=== PATIENT | male | born 1965 | race Caucasian/White ===

== ENCOUNTER 2025-09-15 12:50 | Emergency (ER) | payer MEDICAID, SELFPAY ==
[2025-09-15 12:54] VITALS: BP 129/81; PULSE 88; RESP 18; TEMP 37; O2SAT 99; BMI 24.4
--- NOTE | 2025-09-15 13:53 | XR_ITS ---
EXAMINATION: AP lateral soft tissue neck 2 views TECHNIQUE: AP lateral soft tissue neck 2 views Date and time: September 15, 2025, 1400 hours INDICATIONS: Patient states something stuck in the throat today FINDINGS: Air-fluid level in the esophagus Normal epiglottis Prominent cervical spondylosis Advanced degenerative disc disease C5-C6, C6-C7 IMPRESSION: Air-fluid level in the cervical esophagus, likely related to stricture at the gastroesophageal junction Recommend fluoroscopically guided esophagram follow-up
--- NOTE | 2025-09-15 13:53 | EDNOTE_ITS ---
<Statement entered by Elo Vivar MD - 09/15/25 16:31> As co-signing physician, I was present and available for consult prn. I concur with the plan and care as documented by the midlevel provider. ED General RME/HPI General Chief complaint: Shortness of Breath/Dyspnea Stated complaint: DIFFICULTY BREATHING, SOMETHING STUCK IN THROAT Time Seen by Provider: 09/15/25 13:52 Arrival date/time: 09/15/25 12:50 CC: Esophageal blockage HPI approximately 2 hours ago patient was eating pork ribs and got 1 stuck , patient is not able to swallow his own saliva but has no difficulty breathing or speaking. Prior history of similar event Related Data Allergies Allergy/AdvReac Type Severity Reaction Status Date / Time No Known Allergies Allergy Verified 09/15/25 12:53 Review of Systems Review of Systems Narrative Review of Systems: GEN: No fever, no chills, no weight loss EYES: No discharge, no visual changes, no pain HEENT: No ear pain, no congestion, no sore throat PULM: No shortness of breath, no cough, no congestion CV: No chest pain, no dyspnea on exertion, no palpitations GI: No nausea, no vomiting, no diarrhea, no pain, no constipation : No frequency, no urgency, no dysuria MUSC/SKEL: No joint pain, no back pain SKIN: No rash PSYCH: No hallucinations, no depression HEME/LYMPH: No easy bleeding or bruising tendencies NEURO: No weakness, no headache Past Medical History Social History SMOKING STATUS: Never smoker ED Exam Narrative Physical exam: [General: In mild discomfort but not in any acute distress Head normocephalic HEENT: Eyes pupils are PERRLA EOM's intact mouth pink moist membranes, patient is regurgitating saliva on a regular basis. No stridor with auscultation. All of the subsystems HEENT are within acceptable limits Neck is supple nontender no edema no JVD Chest equal chest rise nontender to palpation Respiratory: Clear to auscultation no wheezes crackles or rubs CV: Rate rhythm is regular no murmurs rubs or clicks Abdomen is soft nontender no masses positive bowel sounds all 4 quadrants Back: No CVA tenderness no spinous process tenderness from cervical spine thoracic and lumbar spine Skin: Intact no petechiae rash induration ulceration or crepitus Extremities: Moving all extremity against resistance cap refill less than 2 seconds neurosensory intact Neuro: Awake alert oriented x3 Glascow coma 15 no focal deficits] Course Course Course Narrative: Reassessment of this patient at 1518, the patient was able to tolerate water without any complication in addition to swallowing survive but his phonation has returned completely normal at this time comfortable discharging the patient home. Quality Measures none Orders Category Date Time Status Saline [Insert IV] STAT Care 09/15/25 13:53 Active XR soft tissue neck Stat Exams 09/15/25 13:53 Completed Glucagon Inj Med 09/15/25 13:53 Discontinued 1 mg IVP X1 ONE Vital Signs Vital signs: Vital Signs Temperature 98.6 F 09/15/25 12:54 Pulse Rate 88 09/15/25 12:54 Respiratory Rate 18 09/15/25 12:54 Blood Pressure 129/81 09/15/25 12:54 Pulse Oximetry (%) 99 09/15/25 12:54 Oxygen Delivery Method Room Air 09/15/25 12:54 Discharge Plan Plan Patient Disposition: HOME (Self Care) Problem List Clinical Impression: Esophageal foreign body Patient/Caregiver Discharge Instructions Education Materials: ED Foreign Body Esophageal Rslv Additional Instructions: Chew your food completely and thoroughly. Follow-up with your primary care doctor Print Language: Upper Sorbian Stand Alone Forms: Preeti Award Info., Patient Portal Info Letter, Work/School Release PA/[employer] Supervising Physician PA/[employer] FINISHER Supervising Physician: Jm Moon ENP [facility] Clinical Information Provided by: patient Medical Records reviewed [facility] Meds/Rx considered, not ordered None Labs/Rad/Tests considered, not ordered None Chronic Illness/Social Conditions which may negatively complicate care or outcome(s)-explain: None or not applicable EKG EKG not done Medication Administration(s) Medication Administration History Discontinued Medications Glucagon (Glucagon Inj 1 Mg Vial) 1 mg IVP X1 ONE Stop: 09/15/25 13:54 Last Admin: 09/15/25 14:55 Dose: 1 mg Documented By: MAYUR
[2025-09-15 14:13] VITALS: BP 140/89; PULSE 84; RESP 18; TEMP 37.1; O2SAT 99
[2025-09-15] MEDS: GLUCAGON INJ 1 MG VIAL IVP (14:55)
[2025-09-15 15:22] VITALS: BP 149/98; PULSE 84; RESP 12; TEMP 36.9; O2SAT 98
== END 2025-09-15 15:25 | disposition home or self-care (01) ==
LOC: SERX 15:44
PROVIDERS: Emergency Provider Emergency Medicine
DX: T18.108A Unspecified foreign body in esophagus causing other injury, initial encounter (principal); W44.9XXA Unspecified foreign body entering into or through a natural orifice, initial encounter
CPT/HCPCS: 70360; 96374; 99283; J1611